=== PATIENT | female | born 1965 | race Caucasian/White ===

== ENCOUNTER 2020-03-13 07:55 | Outpatient (CLI) | payer MEDICAID, SELFPAY ==
[2020-03-13 08:45] LABS: Basophils # 0.1 10^3/uL (0.0-0.1); Eosinophils # 0.4 10^3/uL (0.0-0.8); Eosinophils % 4.2 %; Hematocrit 38.2 % (37.0-47.0); Hemoglobin 12.5 g/dL (11.5-15.3); Lymphocytes % 23.7 %; Mean Corpuscular HGB Conc 32.7 g/dL (30.0-36.0); Mean Corpuscular Volume 88.6 fL (81-99); Monocytes # 0.9 10^3/uL (0.2-0.9); Monocytes % 10.4 %; Neutrophils # 5.06 10^3/uL (1.8-7.7); Neutrophils % 60.3 %; Nucleated Red Blood Cells % 0 %; Platelet Count 253 10^3/cmm (130-400); Red Blood Count 4.31 10^6/uL (4.1-5.3); Red Cell Distribution Width 12.7 % (12.1-15.1); White Blood Count 8.4 10^3/uL (4.0-10.0)
[2020-03-13 09:02] LABS: Alanine Aminotransferase 12 U/L (0-33); Albumin Level 4.6 g/dL (3.5-5.2); Alkaline Phosphatase 93 IU/L (35-105); Aspartate Amino Transferase 16 U/L (0-32); Blood Urea Nitrogen 13 mg/dL (6-20); Calcium 9.2 mg/dL (8.5-10.5); Carbon Dioxide 24 mmol/L (22-29); Chloride 100 mmol/L (98-107); Globulin 2.4 g/dL (1.3-4.6); Glomerular Filtration Rate 86.6 mL/min (90-130); Glucose 100 mg/dL (65-115); Osmolality Calculated 280 mOsm/kg (285-295); Sodium 135 mmol/L (136-145); Total Bilirubin 0.2 mg/dL (0.15-1.2)
--- NOTE | 2020-03-17 09:31 | ONC FU_ITS ---
Dr. Medrano Patient Follow-Up Note Patient: Marialuisa Snow Unit #: [id number]: 1965 Dicatated By: Iggy Medrano M.D.Date of Visit:Mar 13, 2020 Onc Med Follow-up/Prog Note Chief Complaint: Breast cancer. 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 She had presented initially with an abnormal screening mammogram. She was confirmed by core needle biopsy on 09/29/11 to have grade 2 invasive lobular carcinoma which was ER positive at 81%, IA positive at 85%, and negative for overexpression of HER-2/randall (1+ by IHC). Her subsequent treatment included lumpectomy/sentinel axillary lymph node biopsy followed by reexcision lumpectomy and left axillary node dissection followed by bilateral mastectomy and immediate TRAM flap reconstruction on 01/06/2012. Pathology on the lumpectomy specimen showed mixed ductal and lobular carcinoma, which included grade 2 lobular carcinoma and grade 1 ductal carcinoma. There was a small component of in situ cancer, both ductal and lobular. There was invasive carcinoma present at the anterior and deep margins. The tumor measured 2.8 cm in maximum diameter. There was involvement in 2 of 5 sentinel axillary lymph nodes. The reexcision lumpectomy showed a small focus of invasive lobular carcinoma at the lateral portion of the anterior margin. Axillary lymph node dissection at that time showed no involvement in 6 additional lymph nodes. There was no tumor identified in the mastectomy specimen. Her final staging was IIB (T2, pN1a, M0). She was given adjuvant chemotherapy with dose dense Adriamycin/cyclophosphamide followed by Taxol, which she completed in April 2012. She was then given radiation to the left chest wall and supraclavicular region, completed on 08/17/2012 to a total dose of 50.4 Gy. She then began adjuvant hormonal therapy with tamoxifen. It was stopped in July 2017 after completing 5 years of treatment. As her hormonal levels at that point appeared to be in post menopause arrange, she then began extended adjuvant hormonal therapy with anastrozole 1 mg daily. Her past medical history includes hysterectomy without oophorectomy in 1993. Her prechemotherapy hormone levels were premenopausal. She has a history of irregular heartbeat, for which she takes a low dose of metoprolol. She has no other medical illnesses. INTERIM HISTORY: She started anastrozole 1 mg daily in August 2017. Her baseline DEXA scan showed mild osteopenia with T score -1.3 in the lumbar spine and a mean femoral neck T score of -0.7. She developed significant side effects within one month after starting on the anastrozole. These were mostly [employer] symptoms including weakness, confusion, and difficulty concentrating. The symptoms improved within 1 to 2 weeks after stopping the medication. On her follow-up visit in November 2017 she was feeling much better, and at that point she began further adjuvant hormonal therapy with exemestane 25 mg daily. I had seen her for a follow-up visit on 06/21/2018. At that point she seemed to be tolerating the exemestane with acceptable toxicity, though she had developed some urinary tract symptoms and increased vaginal dryness. She initially continue the exemestane, but her symptoms been continued to worsen, and the exemestane was put on hold. In July she was started on empiric antibiotic therapy with ciprofloxacin. I had seen her for a follow-up visit on 09/26/2018. Her cystitis symptoms had improved significantly, and at that point she restarted exemestane 25 mg daily. She is seen for a followup visit. She has not been feeling as good generally. Lately she has been more fatigued, though she still has normal activity. Her ECOG score is 0. Her appetite has not been as good, and she says she makes herself eat. Her weight is down a few pounds. She does not have fever. She has hot flashes, but not bad. Her main complaint is that she has had an itchy, pulling feeling in the area of her right chest wall and axilla and she also has been having pain in her upper back on the right side. She thinks she may feel a knot. She has no shortness of breath, cough, or chest pain. She has been having constipation, which she manages adequately with MiraLAX as needed. She has been voiding more frequently. She also occasionally has deep pain in her hip area. She has been having more headaches. She occasionally has dizziness. She has a little bit of numbness in her right arm and hand. Medications: Claritin 1 (10 mg) Capsule Oral daily, Exemestane 1 Tablet (of 25 mg) Oral daily, Flonase Suspension Nasal daily, Ibuprofen 400 mg (of 400 mg) Tablet Oral four times a day PRN, Magnesium Citrate 1 (500 mg) Tablet Oral daily, Premarin 1 (0.625 mg/g) Cream Vaginal q 7 days, Probiotic 1 Tablet Capsule Oral daily, Replens 1 Gel (jelly) Vaginal PRN, Triamcinolone Acetonide 1 (0.1 %) Cream Topical b.i.d., Vitamin D3 1 Capsule (of 1000 Units) Tablet Oral daily Allergies: Biaxin, Erythromycin Base, Nitrofurantoin Macrocrystal, Penicillins, Pseudoephedrine HCl, and Sulfamethoxazole-Trimethoprim. Review of Systems: Constitutional - She has been more fatigued, but she still has normal activity. Appetite has not been very good. She makes herself eat. Her weight is down a few pounds. She does not have fever. She has hot flashes, but not bad. ECOG score is 0, ENMT - She has sinus congestion/drainage. No mouth sores. No sore throat or difficulty swallowing, Hematologic/Lymphatic - No abnormal bruising or bleeding, Respiratory - No shortness of breath. No cough. No pleuritic pain or hemoptysis, Cardiovascular - No angina pain. No palpitations, Gastrointestinal - No nausea or vomiting. No heartburn or acid reflux. She is having constipation. She is managing it adequately with MiraLAX as needed. No blood in the stool or black stools, Genitourinary (F) - No dysuria or hematuria. She has voiding more frequently. No urgency or incontinence, Musculoskeletal - She is having occasional deep hip pain, Integumentary - No skin rash, Neurologic - She has been having more headaches. She occasionally has dizziness. She has a little bit of numbness in her right arm/hand. No other focal neurologic symptoms, Psychiatric - No anxiety or depression. She has not been sleeping very well. Vital Signs: Performed on Mar 13, 2020 09:35 Height - 62.00 in Weight - 125.0 lbs (LOW) BSA - 1.57 sq.m BMI - 22.86 Temperature - 99.0 F (HIGH) Pulse - 79 /min Respiration - 20 /min BP - 127/68 mm(hg) O2 Sat - 99 % Pain - 6 Physical Examination: Constitutional - She looks good generally, Eyes - Sclerae nonicteric. Conjunctivae clear, ENMT - No lesions noted in the oral cavity, Hematologic/Lymphatic - No cervical or clavicular adenopathy, Respiratory - Lungs are clear, Cardiovascular - Heart rhythm is regular. There is no murmur, gallop, or rub noted, Breasts - There are no lesions noted in the chest wall/reconstruction bilaterally. There is no axillary adenopathy, Abdomen - Soft. Liver and spleen are not enlarged. There is no abdominal mass or ascites noted and there is no inguinal adenopathy, Back/Spine - There is no bony tenderness in the spine, Extremities - No edema, Neurologic - No focal neurologic deficits noted. Lab/Imaging: Test performed on Mar 13, 2020 08:32 Sodium 135 mmol/L Potassium 4.0 mmol/L Chloride 100 mmol/L CO2 24 mmol/L Anion Gap 15.0 BUN 13 mg/dL Creatinine 0.7 mg/dL Cr Clearance (Est) 80.33 mL/min eGFR 86.6 mL/min Glucose 100 mg/dL Osmolality - Calculated 280 mOsm/kg Calcium 9.2 mg/dL Protein, Total 7.0 g/dL Albumin 4.6 g/dL Globulin 2.4 g/dL Bilirubin, Total 0.2 mg/dL ALT (SGPT) 12 U/L AST (SGOT) 16 U/L Alkaline Phosphatase 93 IU/L WBC 8.4 10 3/uL RBC 4.31 10 6/uL HGB 12.5 g/dL HCT 38.2 % MCV 88.6 fL MCH 29.0 pg MCHC 32.7 g/dL RDW 12.7 % Platelet Count 253 10 3/cmm MPV 9.0 fL Neutrophils 5.06 10 3/uL Lymphocytes 2.0 10 3/uL Monocytes 0.9 10 3/uL Eosinophils 0.4 10 3/uL Basophils 0.1 10 3/uL Neutrophil % 60.3 % Lymphocyte % 23.7 % Monocyte % 10.4 % Eosinophil % 4.2 % Basophils % 1.0 % NRBC % 0 % Impression: 1. Patient with invasive ductal and lobular carcinoma the left breast, stage IIB (T2, pN1a, M0), ER/IA positive and HER-2/randall negative. 2. She underwent bilateral mastectomy/TRAM flap reconstruction on 01/06/2012. 3. She was given adjuvant chemotherapy with dose dense Adriamycin/cyclophosphamide followed by Taxol, completed in April 2012. 4. She was then given prophylactic chest wall radiation, completed in July 2012. 5. Adjuvant hormonal therapy with tamoxifen began in July 2012. It was stopped in July 2017 after completing 5 years of treatment. 6. In August 2017 she began extended adjuvant hormonal therapy with anastrozole 1 mg daily, as her hormonal levels were in postmenopausal range. It had to be stopped within one month due to multiple side effects, but mainly [employer] toxicity. She then continued adjuvant hormonal therapy with exemestane 25 mg daily beginning in November 2017. She has had menopausal symptoms including hot flashes and vaginal dryness. She also developed persistent urinary frequency and urgency, consistent with cystitis, though with negative urine culture. Following her visit in May 2018, her exemestane was put on hold. She was seen again for follow-up in July 2018. At that time she started empiric antibiotic coverage. As of her follow-up visit in September 2018 her symptoms had improved significantly, and she restarted exemestane 25 mg daily. During subsequent follow-up she was able to tolerate the exemestane with acceptable toxicity, though she had developed cystitis symptoms and increased vaginal dryness. The cystitis symptoms improved with a more prolonged course of antibiotic coverage with ciprofloxacin, and her vaginal symptoms have improved with a small dose of Premarin vaginal cream, which she had used not more than once a week. She has had some arthralgia, but it has been tolerable. Since her last visit, the pain in her hips has worsened somewhat. I suspect this is treatment related. She feels that it is tolerable. She otherwise appears to be doing very well clinically, thus far with no evidence of recurrence of the breast cancer. She continued to have some joint pain, mainly in the hip area, but it was tolerable. As of her visit in August 2019, she continued exemestane 25 mg daily. She has since then continued to have hip pain. She also now has been having discomfort in her right chest wall/axilla and upper back on the right side. In addition, she has been more fatigued, and she is just not been feeling as good generally. Plan: At this point I am going to have her stop the exemestane, as I feel her symptoms are most likely treatment related. She will be scheduled for a follow-up visit in 1 month. Signed By: Iggy Medrano M.D. <<Signature on File>>
== END 2020-03-13 07:56 | disposition home or self-care (01) ==
LOC: ONCMED 07:58
PROVIDERS: PCP Nurse Practitioner Family; Visit Provider Internal Medicine Medical Oncology
DX: C50.812 Malignant neoplasm of overlapping sites of left female breast (principal); Z17.0 Estrogen receptor positive status [ER+]; Z92.3 Personal history of irradiation; Z92.21 Personal history of antineoplastic chemotherapy; Z79.899 Other long term (current) drug therapy
CPT/HCPCS: 36415; 80053; 85025; 99214

== ENCOUNTER 2020-04-17 12:23 | Outpatient (CLI) | payer MEDICAID, SELFPAY ==
--- NOTE | 2020-04-21 12:11 | ONC FU_ITS ---
Dr. Medrano Patient Follow-Up Note Patient: Marialuisa Snow Unit #: [id number]: 1965 Dicatated By: Iggy Medrano M.D.Date of Visit:Apr 17, 2020 Onc Med Follow-up/Prog Note Chief Complaint: Breast cancer. 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 She had presented initially with an abnormal screening mammogram. She was confirmed by core needle biopsy on 09/29/11 to have grade 2 invasive lobular carcinoma which was ER positive at 81%, FL positive at 85%, and negative for overexpression of HER-2/randall (1+ by IHC). Her subsequent treatment included lumpectomy/sentinel axillary lymph node biopsy followed by reexcision lumpectomy and left axillary node dissection followed by bilateral mastectomy and immediate TRAM flap reconstruction on 01/06/2012. Pathology on the lumpectomy specimen showed mixed ductal and lobular carcinoma, which included grade 2 lobular carcinoma and grade 1 ductal carcinoma. There was a small component of in situ cancer, both ductal and lobular. There was invasive carcinoma present at the anterior and deep margins. The tumor measured 2.8 cm in maximum diameter. There was involvement in 2 of 5 sentinel axillary lymph nodes. The reexcision lumpectomy showed a small focus of invasive lobular carcinoma at the lateral portion of the anterior margin. Axillary lymph node dissection at that time showed no involvement in 6 additional lymph nodes. There was no tumor identified in the mastectomy specimen. Her final staging was IIB (T2, pN1a, M0). She was given adjuvant chemotherapy with dose dense Adriamycin/cyclophosphamide followed by Taxol, which she completed in April 2012. She was then given radiation to the left chest wall and supraclavicular region, completed on 08/17/2012 to a total dose of 50.4 Gy. She then began adjuvant hormonal therapy with tamoxifen. It was stopped in July 2017 after completing 5 years of treatment. As her hormonal levels at that point appeared to be in post menopause arrange, she then began extended adjuvant hormonal therapy with anastrozole 1 mg daily. Her past medical history includes hysterectomy without oophorectomy in 1993. Her prechemotherapy hormone levels were premenopausal. She has a history of irregular heartbeat, for which she takes a low dose of metoprolol. She has no other medical illnesses. INTERIM HISTORY: She started anastrozole 1 mg daily in August 2017. Her baseline DEXA scan showed mild osteopenia with T score -1.3 in the lumbar spine and a mean femoral neck T score of -0.7. She developed significant side effects within one month after starting on the anastrozole. These were mostly [employer] symptoms including weakness, confusion, and difficulty concentrating. The symptoms improved within 1 to 2 weeks after stopping the medication. On her follow-up visit in November 2017 she was feeling much better, and at that point she began further adjuvant hormonal therapy with exemestane 25 mg daily. I had seen her for a follow-up visit on 06/21/2018. At that point she seemed to be tolerating the exemestane with acceptable toxicity, though she had developed some urinary tract symptoms and increased vaginal dryness. She initially continue the exemestane, but her symptoms been continued to worsen, and the exemestane was put on hold. In July she was started on empiric antibiotic therapy with ciprofloxacin. I had seen her for a follow-up visit on 09/26/2018. Her cystitis symptoms had improved significantly, and at that point she restarted exemestane 25 mg daily. At her follow-up visit on 03/13/2020 she reported being significantly more fatigued, and she was having increased pain in the right chest wall/axilla and upper back on the right side. She also reported having deep pain in the hip area. I did have her stop the exemestane. She is seen for a followup visit. She has been feeling much better since she stopped the exemestane. Most of her pain now has resolved and she also has had improvement in her energy and activity tolerance. In retrospect, she thinks she may have had COVID-19 virus infection back in January, she did have a significant exposure during that time. She did not have testing, though. Medications: Claritin 1 (10 mg) Capsule Oral daily, Exemestane 1 Tablet (of 25 mg) Oral daily, Flonase Suspension Nasal daily, Ibuprofen 400 mg (of 400 mg) Tablet Oral four times a day PRN, Magnesium Citrate 1 (500 mg) Tablet Oral daily, Premarin 1 (0.625 mg/g) Cream Vaginal q 7 days, Probiotic 1 Tablet Capsule Oral daily, Replens 1 Gel (jelly) Vaginal PRN, Triamcinolone Acetonide 1 (0.1 %) Cream Topical b.i.d., Vitamin D3 1 Capsule (of 1000 Units) Tablet Oral daily, Vitamin D3 1 Tablet (of 20 mcg ) Oral daily Allergies: Biaxin, Erythromycin Base, Nitrofurantoin Macrocrystal, Penicillins, Pseudoephedrine HCl, and Sulfamethoxazole-Trimethoprim. Vital Signs: Performed on Apr 17, 2020 12:29 Height - 62.00 in Weight - 125.4 lbs (HIGH) BSA - 1.57 sq.m BMI - 22.94 Temperature - 98.3 F (LOW) Pulse - 77 /min Respiration - 18 /min BP - 115/57 mm(hg) O2 Sat - 99 % Pain - 0 Physical Examination: There are no changes in her physical exam. Impression: 1. Patient with invasive ductal and lobular carcinoma the left breast, stage IIB (T2, pN1a, M0), ER/FL positive and HER-2/randall negative. 2. She underwent bilateral mastectomy/TRAM flap reconstruction on 01/06/2012. 3. She was given adjuvant chemotherapy with dose dense Adriamycin/cyclophosphamide followed by Taxol, completed in April 2012. 4. She was then given prophylactic chest wall radiation, completed in July 2012. 5. Adjuvant hormonal therapy with tamoxifen began in July 2012. It was stopped in July 2017 after completing 5 years of treatment. 6. In August 2017 she began extended adjuvant hormonal therapy with anastrozole 1 mg daily, as her hormonal levels were in postmenopausal range. It had to be stopped within one month due to multiple side effects, but mainly COMM[employer] toxicity. She then continued adjuvant hormonal therapy with exemestane 25 mg daily beginning in November 2017. She has had menopausal symptoms including hot flashes and vaginal dryness. She also developed persistent urinary frequency and urgency, consistent with cystitis, though with negative urine culture. Following her visit in May 2018, her exemestane was put on hold. She was seen again for follow-up in July 2018. At that time she started empiric antibiotic coverage. As of her follow-up visit in September 2018 her symptoms had improved significantly, and she restarted exemestane 25 mg daily. During subsequent follow-up she was able to tolerate the exemestane with acceptable toxicity, though she had developed cystitis symptoms and increased vaginal dryness. The cystitis symptoms improved with a more prolonged course of antibiotic coverage with ciprofloxacin, and her vaginal symptoms have improved with a small dose of Premarin vaginal cream, which she had used not more than once a week. She has had some arthralgia, but it has been tolerable. Since her last visit, the pain in her hips has worsened somewhat. I suspect this is treatment related. She feels that it is tolerable. She otherwise appears to be doing very well clinically, thus far with no evidence of recurrence of the breast cancer. She continued to have some joint pain, mainly in the hip area, but it was tolerable. As of her visit in August 2019, she continued exemestane 25 mg daily. At her follow-up visit in February 2020 she reported increased fatigue and increased pain in the right chest wall/axilla and right upper back. She was also having deep pain in the hip area. Those symptoms have improved significantly after stopping the exemestane. However, she indicates that in retrospect she thinks she may have had COVID-19 virus infection in January, but she did not have testing. Plan: She indicates that she is willing to try restarting the exemestane at 25 mg daily. If she starts having joint pain, she can try ibuprofen or naproxen. If that is effective, she will have the option to take meloxicam 15 mg daily. I will see her again in 6 months, or sooner as needed. Signed By: Iggy Medrano M.D. <<Signature on File>>
== END 2020-04-17 12:24 | disposition home or self-care (01) ==
LOC: ONCMED 12:24
PROVIDERS: PCP Nurse Practitioner Family; Visit Provider Internal Medicine Medical Oncology
DX: C50.812 Malignant neoplasm of overlapping sites of left female breast (principal); Z17.0 Estrogen receptor positive status [ER+]; Z90.13 Acquired absence of bilateral breasts and nipples; Z79.818 Long term (current) use of other agents affecting estrogen receptors and estrogen levels; Z92.3 Personal history of irradiation; Z79.899 Other long term (current) drug therapy
CPT/HCPCS: G0463

== ENCOUNTER 2020-10-16 14:35 | Outpatient (CLI) | payer MEDICAID, SELFPAY ==
[2020-10-16 17:49] LABS: Basophils # 0.1 10^3/uL (0.0-0.1); Basophils % 0.9 %; Eosinophils # 0.4 10^3/uL (0.0-0.8); Eosinophils % 4.1 %; Hematocrit 41.1 % (37.0-47.0); Hemoglobin 13.1 g/dL (11.5-15.3); Lymphocytes # 2.9 10^3/uL (0.8-4.8); Lymphocytes % 29.7 %; Mean Corpuscular HGB Conc 31.9 g/dL (30.0-36.0); Mean Corpuscular Hemoglobin 29.6 pg (28.0-34.0); Mean Corpuscular Volume 92.8 fL (81-99); Mean Platelet Volume 9.2 fL (7.4-10.4); Monocytes # 0.8 10^3/uL (0.2-0.9); Monocytes % 8.4 %; Neutrophils # 5.52 10^3/uL (1.8-7.7); Neutrophils % 56.7 %; Nucleated Red Blood Cells % 0 %; Platelet Count 330 10^3/cmm (130-400); Red Blood Count 4.43 10^6/uL (4.1-5.3); Red Cell Distribution Width 12.9 % (12.1-15.1); White Blood Count 9.7 10^3/uL (4.0-10.0)
[2020-10-16 18:17] LABS: Alanine Aminotransferase 12 U/L (0-33); Albumin Level 4.5 g/dL (3.5-5.2); Alkaline Phosphatase 100 IU/L (35-105); Blood Urea Nitrogen 9 mg/dL (6-20); Calcium 9.2 mg/dL (8.5-10.5); Carbon Dioxide 25 mmol/L (22-29); Chloride 100 mmol/L (98-107); Glomerular Filtration Rate 103.4 mL/min (90-130); Glucose 105 mg/dL (65-115); Iron 80 ug/dL (37-145); Osmolality Calculated 281 mOsm/kg (285-295); Sodium 136 mmol/L (136-145); Thyroid Stimulating Hormone 2.51 uIU/mL (0.27-4.20); Total Bilirubin 0.2 mg/dL (0.15-1.2); Total Protein 7.5 g/dL (6.6-8.7)
[2020-10-16 18:20] LABS: Anion Gap 15.7 (5-19); Aspartate Amino Transferase 22 U/L (0-32); Percent Saturation 25.4 % (20-50); Potassium 4.7 mmol/L (3.5-5.1); Total Iron Binding Capacity 314 mcg/dl; Unsaturated Iron Binding 234 ug/dL (112-347)
--- NOTE | 2020-10-20 13:09 | ONC FU_ITS ---
Dr. Medrano Patient Follow-Up Note Patient: Marialuisa Snow Unit #: [id number]: 1965 Dicatated By: Iggy Medrano M.D.Date of Visit:October 16, 2020 Onc Med Follow-up/Prog Note Chief Complaint: Breast cancer. 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 She had presented initially with an abnormal screening mammogram. She was confirmed by core needle biopsy on 09/29/11 to have grade 2 invasive lobular carcinoma which was ER positive at 81%, MT positive at 85%, and negative for overexpression of HER-2/randall (1+ by IHC). Her subsequent treatment included lumpectomy/sentinel axillary lymph node biopsy followed by reexcision lumpectomy and left axillary node dissection followed by bilateral mastectomy and immediate TRAM flap reconstruction on 01/06/2012. Pathology on the lumpectomy specimen showed mixed ductal and lobular carcinoma, which included grade 2 lobular carcinoma and grade 1 ductal carcinoma. There was a small component of in situ cancer, both ductal and lobular. There was invasive carcinoma present at the anterior and deep margins. The tumor measured 2.8 cm in maximum diameter. There was involvement in 2 of 5 sentinel axillary lymph nodes. The reexcision lumpectomy showed a small focus of invasive lobular carcinoma at the lateral portion of the anterior margin. Axillary lymph node dissection at that time showed no involvement in 6 additional lymph nodes. There was no tumor identified in the mastectomy specimen. Her final staging was IIB (T2, pN1a, M0). She was given adjuvant chemotherapy with dose dense Adriamycin/cyclophosphamide followed by Taxol, which she completed in April 2012. She was then given radiation to the left chest wall and supraclavicular region, completed on 08/17/2012 to a total dose of 50.4 Gy. She then began adjuvant hormonal therapy with tamoxifen. It was stopped in July 2017 after completing 5 years of treatment. As her hormonal levels at that point appeared to be in post menopause arrange, she then began extended adjuvant hormonal therapy with anastrozole 1 mg daily. Her past medical history includes hysterectomy without oophorectomy in 1993. Her prechemotherapy hormone levels were premenopausal. She has a history of irregular heartbeat, for which she takes a low dose of metoprolol. She has no other medical illnesses. INTERIM HISTORY: She started anastrozole 1 mg daily in August 2017. Her baseline DEXA scan showed mild osteopenia with T score -1.3 in the lumbar spine and a mean femoral neck T score of -0.7. She developed significant side effects within one month after starting on the anastrozole. These were mostly HOSPITAL DIRECTOR symptoms including weakness, confusion, and difficulty concentrating. The symptoms improved within 1 to 2 weeks after stopping the medication. On her follow-up visit in November 2017 she was feeling much better, and at that point she began further adjuvant hormonal therapy with exemestane 25 mg daily. I had seen her for a follow-up visit on 06/21/2018. At that point she seemed to be tolerating the exemestane with acceptable toxicity, though she had developed some urinary tract symptoms and increased vaginal dryness. She initially continue the exemestane, but her symptoms been continued to worsen, and the exemestane was put on hold. In July she was started on empiric antibiotic therapy with ciprofloxacin. I had seen her for a follow-up visit on 09/26/2018. Her cystitis symptoms had improved significantly, and at that point she restarted exemestane 25 mg daily. At her follow-up visit on 03/13/2020 she reported being significantly more fatigued, and she was having increased pain in the right chest wall/axilla and upper back on the right side. She also reported having deep pain in the hip area. I did have her stop the exemestane. Her symptoms then improved and as of her follow-up visit in March 2020 she agreed to try restarting it. She is seen for a followup visit. She has been feeling pretty good generally. She has been able to control her pain very well with a combination of turmeric and Claritin. She also has had improvement in her leg cramps. She still has fatigue, but she has normal activity. ECOG score is 0. She has good appetite. She has not had fever or night sweats. She has just a little bit of hot flashes now. She has chronic sinus symptoms she recently has had antibiotic therapy for sinusitis. She has no shortness of breath, cough, or chest pain. She has no GI or complaints. She does not complain of headache or dizziness, and she has no focal neurologic symptoms. She still has some restless leg symptoms. Medications: Claritin 1 (10 mg) Capsule Oral daily, Exemestane 1 Tablet (of 25 mg) Oral daily, Flonase Suspension Nasal daily, Ibuprofen 400 mg (of 400 mg) Tablet Oral four times a day PRN, Magnesium Citrate 1 (500 mg) Tablet Oral daily, Premarin 1 (0.625 mg/g) Cream Vaginal q 7 days, Probiotic 1 Tablet Capsule Oral daily, Replens 1 Gel (jelly) Vaginal PRN, Triamcinolone Acetonide 1 (0.1 %) Cream Topical b.i.d., Vitamin D3 1 Capsule (of 1000 Units) Tablet Oral daily, Vitamin D3 1 Tablet (of 20 mcg ) Oral daily Allergies: Biaxin, Erythromycin Base, Nitrofurantoin Macrocrystal, Penicillins, Pseudoephedrine HCl, and Sulfamethoxazole-Trimethoprim. Vital Signs: Performed on October 16, 2020 14:59 Height - 62.00 in Weight - 120.2 lbs (LOW) BSA - 1.54 sq.m BMI - 21.99 Temperature - 98.4 F Pulse - 82 /min Respiration - 18 /min BP - 104/68 mm(hg) O2 Sat - 99 % Pain - 0 Fatigue - 5 Physical Examination: Constitutional - She looks good generally, Eyes - Sclerae nonicteric. Conjunctivae clear, ENMT - No lesions noted in the oral cavity, Hematologic/Lymphatic - No cervical, clavicular, or axillary adenopathy, Respiratory - Lungs are clear, Cardiovascular - Heart rhythm is regular. There is no murmur, gallop, or rub noted, Abdomen - Soft. Liver and spleen are not enlarged. There is no abdominal mass or ascites noted and there is no inguinal adenopathy, Extremities - No edema, Neurologic - No focal neurologic deficits noted. Lab/Imaging: Test performed on October 16, 2020 17:00 Iron 80 mcg/dL Sodium 136 mmol/L TSH 2.51 uIU/mL Iron Binding Capacity (TIBC) 314 mcg/dl Potassium 4.7 mmol/L % Iron Saturation 25.4 % Chloride 100 mmol/L CO2 25 mmol/L UIBC 234 mcg/dL Anion Gap 15.7 BUN 9 mg/dL Creatinine 0.6 mg/dL Cr Clearance (Est) 90.1100 mL/min eGFR 103.4 mL/min Glucose 105 mg/dL Osmolality - Calculated 281 mOsm/kg Calcium 9.2 mg/dL Protein, Total 7.5 g/dL Albumin 4.5 g/dL Globulin 3.0 g/dL Bilirubin, Total 0.2 mg/dL ALT (SGPT) 12 U/L AST (SGOT) 22 U/L Alkaline Phosphatase 100 IU/L WBC 9.7 10 3/uL RBC 4.43 10 6/uL HGB 13.1 g/dL HCT 41.1 % MCV 92.8 fL MCH 29.6 pg MCHC 31.9 g/dL RDW 12.9 % Platelet Count 330 10 3/cmm MPV 9.2 fL Neutrophils 5.52 10 3/uL Lymphocytes 2.9 10 3/uL Monocytes 0.8 10 3/uL Eosinophils 0.4 10 3/uL Basophils 0.1 10 3/uL Neutrophil % 56.7 % Lymphocyte % 29.7 % Monocyte % 8.4 % Eosinophil % 4.1 % Basophils % 0.9 % NRBC % 0 % Problem List: 1. Patient with invasive ductal and lobular carcinoma the left breast, stage IIB (T2, pN1a, M0), ER/MT positive and HER-2/randall negative. 2. She underwent bilateral mastectomy/TRAM flap reconstruction on 01/06/2012. Problems Addressed with this Encounter and Plan: Patient with invasive ductal and lobular carcinoma the left breast, stage IIB (T2, pN1a, M0), ER/MT positive and HER-2/randall negative. She underwent bilateral mastectomy/TRAM flap reconstruction on 01/06/2012. She was given adjuvant chemotherapy with dose dense Adriamycin/cyclophosphamide followed by Taxol, completed in April 2012. She was then given prophylactic chest wall radiation, completed in July 2012. Adjuvant hormonal therapy with tamoxifen began in July 2012. It was stopped in July 2017 after completing 5 years of treatment. In August 2017 she began extended adjuvant hormonal therapy with anastrozole 1 mg daily, as her hormonal levels were in postmenopausal range. It had to be stopped within one month due to multiple side effects, but mainly HOSPITAL DIRECTOR toxicity. She then continued adjuvant hormonal therapy with exemestane 25 mg daily beginning in November 2017. It caused menopausal symptoms including hot flashes and vaginal dryness. She also developed persistent urinary frequency and urgency, consistent with cystitis, though with negative urine culture. Following her visit in May 2018, her exemestane was put on hold. She was seen again for follow-up in July 2018. At that time she started empiric antibiotic coverage. As of her follow-up visit in September 2018 her symptoms had improved significantly, and she restarted exemestane 25 mg daily. During subsequent follow-up she was able to tolerate the exemestane with acceptable toxicity, though she had developed cystitis symptoms and increased vaginal dryness. The cystitis symptoms improved with a more prolonged course of antibiotic coverage with ciprofloxacin, and her vaginal symptoms improved with a small dose of Premarin vaginal cream, which she had used not more than once a week. She had some arthralgias, but initially those were tolerable. At her follow-up visit in February 2020 she reported increased fatigue and increased pain in the right chest wall/axilla and right upper back. She was also having deep pain in the hip area. Those symptoms improved significantly after stopping the exemestane. As of March 2020 she agreed to try restarting the exemestane. Since then she has been able to manage her joint pain very well with the combination of turmeric and Claritin. She continues to have some fatigue, but overall she appears to be tolerating the exemestane with acceptable toxicity and thus far there has been no evidence of recurrence of the breast cancer. At this point she did have 2 more years of aromatase inhibitor therapy to complete her course of treatment. Given the side effects she has experienced, I am going to evaluate now with a breast cancer index study, subject to verification of insurance coverage. If that is predictive of benefit with extended hormonal therapy, she will continue the exemestane. If not, she will stop treatment now. I will tentatively plan a follow-up visit in 1 year. Signed By: Iggy Medrano M.D. <<Signature on File>>
== END 2020-10-16 14:36 | disposition home or self-care (01) ==
LOC: ONCMED 14:40
PROVIDERS: PCP Nurse Practitioner Family; Visit Provider Internal Medicine Medical Oncology
DX: C50.812 Malignant neoplasm of overlapping sites of left female breast (principal); Z17.0 Estrogen receptor positive status [ER+]; Z90.11 Acquired absence of right breast and nipple; Z90.12 Acquired absence of left breast and nipple; Z79.811 Long term (current) use of aromatase inhibitors
CPT/HCPCS: 36415; 80053; 83540; 83550; 84443; 85025; 99214

== ENCOUNTER → 2021-09-17 11:30 | Outpatient (BNVA) | payer MEDICAID, SELFPAY | PROVIDERS: PCP Nurse Practitioner Family; Visit Provider Nurse Practitioner Women's Health | DX: B37.3 Candidiasis of vulva and vagina (principal); N89.8 Other specified noninflammatory disorders of vagina; B37.9 Candidiasis, unspecified | CPT/HCPCS: 87070; 87205 ==

== ENCOUNTER 2021-11-20 12:54 | Oncology outpatient (recurring) (ONCR) | payer MEDICAID, SELFPAY ==
[2021-11-20 13:22] LABS: Basophils # 0.1 10^3/uL (0.0-0.1); Basophils % 0.9 %; Eosinophils # 1.3 10^3/uL (0.0-0.8); Eosinophils % 14.5 %; Hematocrit 35.7 % (37.0-47.0); Hemoglobin 12.3 g/dL (11.5-15.3); Lymphocytes # 2.7 10^3/uL (0.8-4.8); Lymphocytes % 29.2 %; Mean Corpuscular HGB Conc 34.5 g/dL (30.0-36.0); Mean Corpuscular Hemoglobin 29.5 pg (28.0-34.0); Mean Corpuscular Volume 85.6 fl (81-99); Mean Platelet Volume 9.3 fL (7.4-10.4); Monocytes # 0.7 10^3/uL (0.2-0.9); Monocytes % 7.8 %; Neutrophils # 4.38 10^3/uL (1.8-7.7); Neutrophils % 47.2 %; Nucleated Red Blood Cells % 0 %; Platelet Count 280 10^3/cmm (130-400); Red Blood Count 4.17 10^6/uL (4.1-5.3); Red Cell Distribution Width 12.9 % (12.1-15.1); White Blood Count 9.3 10^3/uL (4.0-10.0)
[2021-11-20 13:43] LABS: Alanine Aminotransferase 12 U/L (0-33); Albumin Level 4.3 g/dL (3.5-5.2); Alkaline Phosphatase 97 IU/L (35-105); Anion Gap 15.9 (5-19); Aspartate Amino Transferase 18 U/L (0-32); Blood Urea Nitrogen 11 mg/dL (6-20); Calcium 8.8 mg/dL (8.5-10.5); Carbon Dioxide 25 mmol/L (22-29); Chloride 102 mmol/L (98-107); Globulin 2.7 g/dL (1.3-4.6); Glomerular Filtration Rate 73.9 mL/min (90-130); Glucose 114 mg/dL (65-115); Osmolality Calculated 288 mOsm/kg (285-295); Potassium 3.9 mmol/L (3.5-5.1); Sodium 139 mmol/L (136-145); Total Bilirubin 0.2 mg/dL (0.15-1.2)
== END 2021-11-20 23:59 | disposition home or self-care (01) ==
PROVIDERS: PCP Nurse Practitioner Family; Visit Provider Internal Medicine Medical Oncology
DX: C50.812 Malignant neoplasm of overlapping sites of left female breast (principal); Z17.0 Estrogen receptor positive status [ER+]; Z79.811 Long term (current) use of aromatase inhibitors
CPT/HCPCS: 80053; 85025; 99214

== ENCOUNTER 2022-11-26 13:07 | Oncology outpatient (recurring) (ONCR) | payer MEDICAID, SELFPAY ==
[2022-11-26 14:21] LABS: Basophils # 0.1 10^3/uL (0.0-0.1); Basophils % 0.7 %; Eosinophils # 0.3 10^3/uL (0.0-0.8); Eosinophils % 3.2 %; Hematocrit 39.6 % (37.0-47.0); Hemoglobin 12.9 g/dL (11.5-15.3); Lymphocytes # 2.5 10^3/uL (0.8-4.8); Lymphocytes % 27.1 %; Mean Corpuscular HGB Conc 32.6 g/dL (30.0-36.0); Mean Corpuscular Hemoglobin 28.7 pg (28.0-34.0); Mean Corpuscular Volume 88.2 fl (81-99); Mean Platelet Volume 9.1 fL (7.4-10.4); Monocytes # 0.9 10^3/uL (0.2-0.9); Monocytes % 9.1 %; Neutrophils # 5.57 10^3/uL (1.8-7.7); Neutrophils % 59.6 %; Nucleated Red Blood Cells % 0 %; Platelet Count 287 10^3/cmm (130-400); Red Blood Count 4.49 10^6/uL (4.1-5.3); Red Cell Distribution Width 12.8 % (12.1-15.1); White Blood Count 9.4 10^3/uL (4.0-10.0)
[2022-11-26 14:31] LABS: Alanine Aminotransferase 10 U/L (0-33); Albumin Level 4.2 g/dL (3.5-5.2); Alkaline Phosphatase 85 U/L (35-105); Aspartate Amino Transferase 17 U/L (0-32); Blood Urea Nitrogen 15 mg/dL (6-20); Calcium 8.9 mg/dL (8.5-10.5); Carbon Dioxide 24 mmol/L (22-29); Chloride 103 mmol/L (98-107); Globulin 2.6 g/dL (1.3-4.6); Glomerular Filtration Rate 85.9 mL/min (90-130); Glucose 111 mg/dL (65-115); Osmolality Calculated 290 mOsm/kg (285-295); Sodium 139 mmol/L (136-145); Total Bilirubin 0.2 mg/dL (0.15-1.2); Total Protein 6.8 g/dL (6.6-8.7)
== END 2022-12-21 23:59 | disposition home or self-care (01) ==
PROVIDERS: PCP Nurse Practitioner Family; Visit Provider Nurse Practitioner Family
DX: C50.812 Malignant neoplasm of overlapping sites of left female breast (principal); Z17.0 Estrogen receptor positive status [ER+]; Z90.13 Acquired absence of bilateral breasts and nipples; R53.0 Neoplastic (malignant) related fatigue; Z79.811 Long term (current) use of aromatase inhibitors; Z79.899 Other long term (current) drug therapy
CPT/HCPCS: 36415; 80053; 85025; 99213

== ENCOUNTER 2023-03-10 14:04 | Outpatient (CLI) | payer MEDICAID, SELFPAY ==
--- NOTE | 2023-03-10 14:30 | XR_ITS ---
WS: [id number] SCREENING DEXA SCAN [employer] CLINICAL INFORMATION: Z13.820 - Encounter for screening for osteoporosis COMPARISON: 2018 FINDINGS: The L1-L4 bone mineral density measures 0.907 g/cm2. This corresponds to a T score score of -2.3 and Z score of -0.9. Left femoral neck bone mineral density measures 0.835 g/cm2. This corresponds to a T score of -1.4 an d Z score of -0.3. Right femoral neck bone mineral density measures 0.871 g/cm2. This corresponds to a T score -1.1of an d Z score of 0.0. Mean femoral neck bone mineral density measures 0.853 g/cm2. This corresponds to a T score of -1.2 an d Z score of -0.2. IMPRESSION: Osteopenia lumbar spine. Osteopenia femoral necks. Patient's FRAX calculated 10 year probability for major osteoporotic fracture is 7.7% and osteoporotic hip fracture is 0.7%. Bone mineral density lumbar spine decreased -11.4% Bone mineral density femoral necks decreased -7.2%
== END 2023-03-10 14:05 | disposition home or self-care (01) ==
LOC: RAD 14:05
PROVIDERS: PCP Nurse Practitioner Family; Visit Provider Nurse Practitioner Women's Health
DX: Z13.820 Encounter for screening for osteoporosis (principal); Z78.0 Asymptomatic menopausal state; M85.89 Other specified disorders of bone density and structure, multiple sites
CPT/HCPCS: 77080

== ENCOUNTER 2023-11-29 10:25 | Oncology outpatient (recurring) (ONCR) | payer MEDICAID, SELFPAY ==
[2023-11-29 10:46] LABS: Basophils # 0.1 10^3/uL (0.0-0.1); Basophils % 0.9 %; Eosinophils # 0.3 10^3/uL (0.0-0.8); Eosinophils % 3.7 %; Hematocrit 38.5 % (36-47); Lymphocytes # 2.1 10^3/uL (0.8-4.8); Lymphocytes % 24.5 %; Mean Corpuscular Hemoglobin 29.3 pg (27-33); Mean Corpuscular Volume 88.7 fl (85-98); Monocytes # 0.9 10^3/uL (0.2-0.9); Monocytes % 9.8 %; Neutrophils # 5.25 10^3/uL (1.8-7.7); Neutrophils % 60.6 %; Nucleated Red Blood Cells % 0 %; Platelet Count 277 10^3/cmm (157-399); Red Blood Count 4.34 10^6/uL (3.85-5.65); Red Cell Distribution Width 12.9 % (12.1-15.1); White Blood Count 8.66 10^3/uL (3.29-11.43)
[2023-11-29 11:09] LABS: Alanine Aminotransferase 17 U/L (0-33); Albumin Level 4.5 g/dL (3.5-5.2); Alkaline Phosphatase 78 U/L (35-105); Aspartate Amino Transferase 16 U/L (0-32); Blood Urea Nitrogen 17 mg/dL (6-20); Calcium 9.2 mg/dL (8.5-10.5); Carbon Dioxide 24 mmol/L (22-29); Globulin 2.8 g/dL (1.3-4.6); Glomerular Filtration Rate 85.6 mL/min (90-130); Glucose 101 mg/dL (65-115); Total Bilirubin 0.2 mg/dL (0.15-1.2); Total Protein 7.3 g/dL (6.6-8.7)
[2023-11-29 11:25] LABS: Anion Gap 13.2 (5-19); Chloride 101 mmol/L (98-107); Osmolality Calculated 280 mOsm/kg (285-295); Potassium 4.2 mmol/L (3.5-5.1); Sodium 134 mmol/L (136-145)
[2023-11-29 13:46] LABS: 25 Hydroxy Vitamin D 42 ng/mL (30-100); Thyroid Stimulating Hormone 2.29 uIU/mL (0.27-4.20)
== END 2023-12-22 23:59 | disposition home or self-care (01) ==
PROVIDERS: PCP Nurse Practitioner Family; Visit Provider Nurse Practitioner Family
DX: M85.80 Other specified disorders of bone density and structure, unspecified site (principal); R53.83 Other fatigue; Z87.891 Personal history of nicotine dependence; Z92.21 Personal history of antineoplastic chemotherapy; Z90.13 Acquired absence of bilateral breasts and nipples; Z92.3 Personal history of irradiation; Z85.3 Personal history of malignant neoplasm of breast; Z92.25 Personal history of immunosuppression therapy; Z08 Encounter for follow-up examination after completed treatment for malignant neoplasm
CPT/HCPCS: 36415; 80053; 82306; 84443; 85025; 99214

== ENCOUNTER 2024-12-05 09:47 | Oncology outpatient (recurring) (ONCR) | payer MEDICAID, SELFPAY ==
[2024-12-05 10:07] LABS: Hematocrit 36.7 % (36-47); Hemoglobin 12.30 g/dL (11.27-16.99); Mean Corpuscular HGB Conc 33.5 g/dL (30-55); Mean Corpuscular Hemoglobin 28.9 pg (27-33); Mean Corpuscular Volume 86.4 fl (85-98); Nucleated Red Blood Cells % 0 %; Platelet Count 288 10^3/cmm (157-399); Red Blood Count 4.25 10^6/uL (3.85-5.65); White Blood Count 7.24 10^3/uL (3.29-11.43)
[2024-12-05 10:28] LABS: Alanine Aminotransferase 12 U/L (0-33); Albumin Level 4.2 g/dL (3.5-5.2); Alkaline Phosphatase 67 U/L (35-105); Anion Gap 17.9 (5-19); Aspartate Amino Transferase 15 U/L (0-32); Blood Urea Nitrogen 14 mg/dL (8-23); Calcium 8.7 mg/dL (8.5-10.5); Carbon Dioxide 22 mmol/L (22-29); Chloride 103 mmol/L (98-107); Creatinine Clr Calc Pharmacy 72.3806; Globulin 2.8 g/dL (1.3-4.6); Glucose 124 mg/dL (65-115); Osmolality Calculated 290 mOsm/kg (285-295); Potassium 3.9 mmol/L (3.5-5.1); Sodium 139 mmol/L (136-145); Total Protein 7.0 g/dL (6.6-8.7)
== END 2024-12-21 23:59 | disposition home or self-care (01) ==
PROVIDERS: Nurse Practitioner Family; PCP Nurse Practitioner Family; Visit Provider Nurse Practitioner Family
DX: Z08 Encounter for follow-up examination after completed treatment for malignant neoplasm (principal); Z85.3 Personal history of malignant neoplasm of breast; Z90.13 Acquired absence of bilateral breasts and nipples; Z92.3 Personal history of irradiation; Z92.21 Personal history of antineoplastic chemotherapy; M85.851 Other specified disorders of bone density and structure, right thigh; M85.852 Other specified disorders of bone density and structure, left thigh
CPT/HCPCS: 36415; 80053; 82306; 85025; 99213

== ENCOUNTER 2025-03-12 12:35 | Outpatient (CLI) | payer MEDICAID, SELFPAY ==
--- NOTE | 2025-03-12 13:00 | XR_ITS ---
WS: [id number] DEXA (DUAL ENERGY X-RAY ABSORPTIOMETRY) Bone mineral density was performed using a [employer] machine. HISTORY: history of AI use; osteopenia COMPARISON: 03/10/2023 Lumbar spine BMD (L1-L4): 0.894 g/cm2 T score: -2.4 Z score: -0.9 Total hip BMD: Left: 0.857 g/cm2. T score: -1.2 Z score: -0.1 Right: 0.886 g/cm2. T score: -1.0 Z score: 0.1 10 year probability of a major osteoporotic fracture is 8.7%. Compared to the prior study from 03/10/2023. Lumbar spine bone mineral density has decreased by 1.4%. Bilateral hips bone mineral density has increased by 2.1%. XR/XR DEXA axial skeleton* [id number] IMPRESSION: OSTEOPENIA based upon the WHO classification for females. Significant increase in bone mineral density within the hips. No change of bone mineral density in the lumbar spine from the prior exam.
== END 2025-03-12 12:36 | disposition home or self-care (01) ==
LOC: RAD 12:37
PROVIDERS: PCP Nurse Practitioner Family; Visit Provider Nurse Practitioner Family
DX: Z13.820 Encounter for screening for osteoporosis (principal); C50.812 Malignant neoplasm of overlapping sites of left female breast; M85.851 Other specified disorders of bone density and structure, right thigh; M85.852 Other specified disorders of bone density and structure, left thigh
CPT/HCPCS: 77080